=== PATIENT | female | born 2000 | race Two or more races ===

== ENCOUNTER 2022-08-08 13:40 | Emergency (ER) | payer OTHER ==
[2022-08-08 13:45] VITALS: BP 120/80; PULSE 87; RESP 18; TEMP 98.8; BMI 25.0
[2022-08-08 15:29] LABS: THROAT:GRP A STREP DETECTED (NOTDETECTED)
== END 2022-08-08 16:43 | disposition home or self-care (01) ==
LOC: JER 13:40
DX: J02.0 Streptococcal pharyngitis (principal); R09.81 Nasal congestion
CPT/HCPCS: 0241U-QW; 87651; 99283-25